=== PATIENT | female | born 1975 | race Caucasian/White ===

== ENCOUNTER → 2017-12-03 | Outpatient (CLI) | payer MEDICAID | LOC: FIMAGING 17:52 | PROVIDERS: ATTEND Physician Assistant Medical | DX: M75.111 Incomplete rotator cuff tear or rupture of right shoulder, not specified as traumatic (principal); M75.21 Bicipital tendinitis, right shoulder; M50.122 Cervical disc disorder at C5-C6 level with radiculopathy ==

== ENCOUNTER → 2018-10-07 | Outpatient (CLI) | payer MEDICAID | LOC: CIMAGING 15:22 ==